=== PATIENT | female | born 1930 | race Caucasian/White ===

== ENCOUNTER 2019-04-02 23:36 | Inpatient (IN) | payer OTHER ==
[~2019-04-02] VITALS: Ht 154.9 cm; Wt 58.3 kg
[2019-04-02 23:44] VITALS: Ht 154.9 cm; Wt 58.3 kg
[2019-04-03 01:53] LABS: PLATELET COUNT 260 x10^3mcL (130-400); RED CELL DISTRIBUTION WIDTH 13.2 % (11.5-14.5)
[2019-04-03 01:54] LABS: CALCIUM 9.3 mg/dL (8.5-10.1); CARBON DIOXIDE 23.9 mmol/L (21-32); CHLORIDE SERUM 98 mmol/L (98-107); CREATININE SERUM 1.2 mg/dL (0.6-1.0); GLUCOSE SERUM 226 mg/dL (74-106); SODIUM SERUM 135 mmol/L (136-145)
[2019-04-03 02:05] LABS: CK-MB 0.8 ng/mL (0-3.6)
[2019-04-03 02:06] LABS: FREE T4 1.4 ng/dL (0.76-1.46); FREE THYROXINE INDEX 2.9 ug/dL (1.4-4.5); T4(THYROXINE) 8.5 ug/dL (4.7-13.3)
[2019-04-03 02:10] LABS: T3 TOTAL 0.78 ng/mL
[2019-04-03 02:17] LABS: ALBUMIN 3.6 g/dL (3.4-5.0); ALKALINE PHOSPHATASE 85 U/L (46-116); ALT/SGPT 14 U/L (14-59); AST/SGOT 7 U/L (15-37); BILIRUBIN TOTAL 0.36 mg/dL (0.20-1.00); TOTAL PROTEIN, SERUM 7.3 g/dL (6.4-8.2)
[2019-04-03 02:20] LABS: C REACTIVE PROTEIN < 0.2 mg/dL (<=0.9)
[2019-04-03 02:29] LABS: BAND NEUTROPHIL 2 % (0-10); MONOCYTE 1 % (0-7); SEGMENTED NEUTROPHILS 91 % (37-75)
[2019-04-03 02:30] LABS: PLATELET MORPHOLOGY PLATELETS NORMAL; rbc morphology (normal/abnorm) NORMAL (NORMAL)
[2019-04-03 02:45] LABS: ERYTHROCYTE SED RATE 35 mm/hr (0-30)
[2019-04-03 04:04] LABS: UA SPECIFIC GRAVITY 1.015 (1.005-1.035); microscopic required? YES; urine erythrocyte 1+ (NEGATIVE)
[2019-04-03 05:39] LABS: MAGNESIUM 1.3 mg/dL (1.8-2.4)
[2019-04-03 05:55] VITALS: BP 132/72
[2019-04-03 08:14] VITALS: BP 124/62
[2019-04-03 09:27] VITALS: BP 135/58
[2019-04-03 14:03] VITALS: BP 129/60
[2019-04-03 17:08] VITALS: BP 131/62
[2019-04-03 20:01] VITALS: BP 120/63
[2019-04-04 05:25] VITALS: BP 146/60
[2019-04-04 06:44] LABS: CALCIUM 8.9 mg/dL (8.5-10.1); CARBON DIOXIDE 30.5 mmol/L (21-32); CHLORIDE SERUM 103 mmol/L (98-107); CREATININE SERUM 0.8 mg/dL (0.6-1.0); GLUCOSE SERUM 124 mg/dL (74-106); POTASSIUM SERUM 4.5 mmol/L (3.5-5.1); SODIUM SERUM 141 mmol/L (136-145)
[2019-04-04 07:04] LABS: BASOPHIL % 0.3 % (0-2); PLATELET COUNT 262 x10^3mcL (130-400); RED CELL DISTRIBUTION WIDTH 13.3 % (11.5-14.5)
[2019-04-04 09:33] VITALS: BP 100/61
[2019-04-04 14:00] VITALS: BP 136/58
[2019-04-04 18:28] VITALS: BP 159/72
[2019-04-04 19:50] VITALS: BP 152/51
[2019-04-05 05:30] VITALS: BP 125/50
[2019-04-05 07:39] LABS: CALCIUM 8.4 mg/dL (8.5-10.1); CARBON DIOXIDE 29.4 mmol/L (21-32); CHLORIDE SERUM 101 mmol/L (98-107); CREATININE SERUM 0.9 mg/dL (0.6-1.0); GLUCOSE SERUM 179 mg/dL (74-106); MAGNESIUM 1.4 mg/dL (1.8-2.4); SODIUM SERUM 137 mmol/L (136-145)
[2019-04-05 08:21] LABS: BASOPHIL % 0.3 % (0-2); PLATELET COUNT 258 x10^3mcL (130-400); RED CELL DISTRIBUTION WIDTH 13.1 % (11.5-14.5)
[2019-04-05 09:24] VITALS: BP 140/60
[2019-04-05 16:33] VITALS: BP 104/74
[2019-04-05 20:39] VITALS: BP 125/52
[2019-04-06 05:07] VITALS: BP 135/56
[2019-04-06 06:55] LABS: BASOPHIL % 0.3 % (0-2); PLATELET COUNT 273 x10^3mcL (130-400); RED CELL DISTRIBUTION WIDTH 13.3 % (11.5-14.5)
[2019-04-06 08:09] LABS: CALCIUM 9.5 mg/dL (8.5-10.1); CARBON DIOXIDE 27.3 mmol/L (21-32); CHLORIDE SERUM 103 mmol/L (98-107); CREATININE SERUM 0.8 mg/dL (0.6-1.0); GLUCOSE SERUM 222 mg/dL (74-106); POTASSIUM SERUM 4.8 mmol/L (3.5-5.1); SODIUM SERUM 140 mmol/L (136-145)
[2019-04-06 09:17] VITALS: BP 124/54
[2019-04-06] MEDS ORDERED: NITROFURANTOIN100 MG PO (13:23)
[2019-04-06 14:13] VITALS: BP 124/54
== END 2019-04-06 15:07 | disposition home or self-care (01) | DRG 871 ==
LOC: ED 23:36 → DU 04-03 03:33 → MU 04-03 03:33 → DU 04-03 05:42 → MU 04-05 12:36
PROVIDERS: Specialist; ADMIT Internal Medicine
DX: A41.9 Sepsis, unspecified organism (principal); R65.21 Severe sepsis with septic shock; N17.0 Acute kidney failure with tubular necrosis; N39.0 Urinary tract infection, site not specified; E86.0 Dehydration; E83.42 Hypomagnesemia; B96.29 Other Escherichia coli [E. coli] as the cause of diseases classified elsewhere
CPT/HCPCS: 82962; 83880; 84439; B4164; J0696; J1815; J2543; J3475; J7030; Q0092